=== PATIENT | male | born 1995 | race Caucasian/White ===

== ENCOUNTER 2017-05-18 22:14 | Emergency (ER) | payer SELFPAY ==
[~2017-05-18] VITALS: Ht 157.5 cm; Wt 60.0 kg
[2017-05-18 22:20] VITALS: Ht 157.5 cm; Wt 60.0 kg
[2017-05-19] MEDS ORDERED: morphine 4 MG/ML VIAL IV STA (05:16)
[2017-05-19] MEDS ORDERED: ONDANSETRON 4 MG INJ IV STA (05:16)
[2017-05-19] MEDS ORDERED: SOD CHLORIDE 0.9% 1,000 ML IV STA (05:16)
[2017-05-19] MEDS ORDERED: IOHEXOL 300MG/ML 150 ML BTL ONE (06:14)
[2017-05-19] MEDS ORDERED: SOD CHLORIDE 0.9% 100 ML ONE (06:14)
[2017-05-19 06:17] LABS: BASOPHIL # 0.1 10^3/ul (0.0-0.1); BASOPHILS % 0.8 % (0.0-2.0); EOSINOPHILS # 0.3 10^3/ul (0.0-0.5); EOSINOPHILS % 2.9 % (0.0-7.0); HEMATOCRIT 49.2 % (42.0-52.0); HEMOGLOBIN 16.3 g/dl (14.0-18.0); LYMPHOCYTES # 2.3 10^3/ul (0.8-2.9); LYMPHOCYTES % 25.4 % (18.0-55.0); MEAN CORPUSCULAR HGB CONC 33.1 g/dl (32.0-37.0); MEAN CORPUSCULAR VOLUME 90.6 fl (72.0-104.0); MEAN PLATELET VOLUME 11.1 fl (7.4-10.4); MONOCYTE # 0.7 10^3/ul (0.3-0.9); MONOCYTES % 7.7 % (0.0-13.0); NEUTROPHILS % 62.9 % (30.0-74.0); PLATELET COUNT 291 10^3/UL (140-415); RED BLOOD COUNT 5.43 10^6/ul (4.70-6.10); RED CELL DISTRIBUTION WIDTH 12.8 % (11.5-14.5)
[2017-05-19 06:30] LABS: ALBUMIN 4.9 g/dl (3.3-4.9); ALBUMIN/GLOBULIN RATIO 1.28; BILIRUBIN,INDIRECT 0.5 mg/dl (0-1.1); BILIRUBIN,TOTAL 0.5 mg/dl (0.2-1.3); CALCIUM 10.1 mg/dl (8.4-10.2); CREATININE 0.82 mg/dl (0.61-1.24); POTASSIUM 4.2 mmol/L (3.5-5.1); TOTAL PROTEIN 8.7 g/dl (6.1-8.1)
[2017-05-19 06:31] LABS: ADD UMIC NO; UR ASCORBIC ACID 20 mg/dL (NEGATIVE); UR BILIRUBIN (Dip) NEGATIVE (NEGATIVE); UR BLOOD (Dip) NEGATIVE (NEGATIVE); UR CLARITY CLEAR (CLEAR); UR COLOR YELLOW (YELLOW); UR GLUCOSE (Dip) NEGATIVE (NEGATIVE); UR KETONES (Dip) NEGATIVE (NEGATIVE); UR LEUKOCYTE ESTERASE (Dip) NEGATIVE Leu/ul (NEGATIVE); UR NITRITE (Dip) NEGATIVE (NEGATIVE); UR SPECIFIC GRAVITY (Dip) 1.024 (1.003-1.030); UR TOTAL PROTEIN (Dip) NEGATIVE (NEGATIVE); UR UROBILINOGEN (Dip) NEGATIVE (NEGATIVE)
--- NOTE | 2017-05-19 07:06 | RADRPT ---
PROCEDURE: CT Abdomen and pelvis with contrast. CLINICAL INDICATION: Abdominal pain. TECHNIQUE: CT scan of the abdomen and pelvis with contrast was performed on a multi-detector high -resolution CT scanner. The patient was scanned following the uncomplicated administration of 100 c c of Omnipaque 300 intravenous contrast. Coronal and sagittal reformatted images were obtained from the axial source images. Images were reviewed on a high-resolution PACS workstation. One or more of the following dose reduction techniques were used: - Automated exposure control. - Adjustment of the mA and/or kV according to patient size. - Use of iterative reconstruction technique. Exam CTD/vol = 4.45 mGy. Total exam DLP = 240.59 mGy-cm. COMPARISON: None. FINDINGS: Evaluation of the lung bases demonstrates no pleural or parenchymal disease. Abdomen: The liver is normal in size. There is no focal mass or dilatation of the biliary tree. T he gallbladder is not distended. The spleen, pancreas and bilateral adrenal glands are within simona l limits. Bilateral kidneys are normal in size with symmetric enhancement. There is no focal mass, hydronephrosis or hydroureter. There is no retroperitoneal adenopathy. The abdominal aorta is of normal caliber. There is no abnormal bowel wall thickening or distension. There is no bowel obstruction or free air . A normal appendix is identified. There is no diverticulosis or diverticulitis. There is no asci mazin. Pelvis: The bladder is unremarkable. The prostate and seminal vesicles are within normal limits. There is no significant pelvic adenopathy or free fluid. Evaluation of the osseous structures demonstrates no suspicious lytic or blastic lesion. IMPRESSION: No acute abnormality identified within the abdomen and pelvis. .Nicola Bashir MD, MD Date Time Electronically viewed and signed by .Nicola Bashir MD, MD on 05/19/2017 07:05 .T/
--- NOTE | 2017-05-19 07:21 | RADRPT ---
PROCEDURE: Testicle ultrasound with power Doppler. CLINICAL INDICATION: Scrotal pain. TECHNIQUE: Multiple sonographic images of the scrotal region were obtained utilizing a linear arra y transducer with grayscale and color-flow and a Doppler imaging. The images were reviewed on a high -resolution PACS workstation. COMPARISON: None. FINDINGS: Bilateral testicles are normal in size, contour, echogenicity and echotexture. The right testicle m easures 3.3 x 1.8 x 2.3 cm and the left testicle measures 3.2 x 1.7 x 2.2 cm. Testicle arterial and venous flow are normal. There is no evidence of testicular mass or torsion. There is no evidence of orchitis. Bilateral epididymi are normal in size, contour, position and echogenicity. The right epididymis me asures 7.0 x 7.1 x 3.8 mm the left epididymis measures 7.0 x 6.9 x 3.8 mm. There is no evidence of e pididymitis. There is no significant hydrocele or varicocele. Scrotal soft tissues are unremarkabl e. IMPRESSION: Unremarkable testicular ultrasound. .Nicola Bashir MD, MD Date Time Electronically viewed and signed by .Nicola Bashir MD, MD on 05/19/2017 07:21 .T/
[2017-05-19] MEDS ORDERED: ACET500C5 PO (07:52)
[2017-05-19 08:18] VITALS: BP 126/67; PULSE 72; RESP 18; TEMP 98.2
--- NOTE | 2017-05-20 21:03 | ERD ---
ER Documentation Chief Complaint Date/Time DATE: 05/20/17 TIME: 20:55 Chief Complaint PT c/o RLQ pain with vomiting and diarrhea HPI 21-year-old male present complaining of right lower quadrant abdominal pain, vomiting, diarrhea 3 days. He had one episode of vomiting and 1-2 episodes diarrhea per day. The abdominal pain is worse with movement, and affected by food intake. Patient reports chills. Denies shortness of breath. Denies blood in the stool or vomitus. The vomit is nonbilious. Denies recent travels. Denies dysuria ROS All systems reviewed and are negative except as per history of present illness. Medications Home Meds Active Scripts Acetaminophen* (Tylophen*) 500 Mg Capsule, 1 CAP PO Q6H Y for PAIN AND OR ELEVATED TEMP, #20 CAP Prov:JOLENE GÓMEZ. HEALTH PROFESSIONAL 05/19/17 Allergies Allergies: Coded Allergies: No Known Allergy (Unverified , 05/18/17) PMhx/Soc Medical and Surgical Hx: pt denies Medical Hx, pt denies Surgical Hx Hx Alcohol Use: No Hx Substance Use: No Hx Tobacco Use: No Smoking Status: Never smoker Physical Exam Vitals Vital Signs Date Time Temp Pulse Resp B/P Pulse Ox O2 Delivery O2 Flow Rate FiO2 05/19/17 08:18 98.2 72 18 126/67 100 Room Air 05/18/17 22:20 98.7 66 18 117/62 100 Physical Exam General: Well-developed, well-nourished, conscious and coherent, in no distress Skin: Warm and dry without rash, good texture and turgor Head: Normocephalic without evidence of trauma Eyes: Sclera and conjunctivae normal; pupils equal, round, and reactive to light; extraocular movements are intact Neck: Supple without meningismus or adenopathy. Carotids are equal. Trachea midline. No bruits or JVD Chest: Normal AP diameter. Good expansion without retractions. Nontender. Lungs are clear to auscultate bilaterally with good tidal volume Heart: Regular rate and rhythm. No murmur, rub, or gallops heard Abdomen: Soft, with mild RLQ tenderness, without masses, guarding, or rebound. Bowel sounds are active. No hepatosplenomegaly Back: Without spinal or CVA tenderness Extremities: Full range of motion. Good strength bilaterally. No clubbing, cyanosis, or edema. Peripheral pulses are intact. Sensation intact Neuro: Alert and oriented 4, GCS 15. Cranial nerves grossly intact. Motor and sensory exams nonfocal. Moves all extremities. Speech clear. Gait normal Result Diagram: 05/19/1730 05/19/17 0530 Results 24 hrs Laboratory Tests Test 05/19/17 05:30 White Blood Count 9.010^3/ul Red Blood Count 5.4310^6/ul Hemoglobin 16.3g/dl Hematocrit 49.2% Mean Corpuscular Volume 90.6fl Mean Corpuscular Hemoglobin 30.0pg Mean Corpuscular Hemoglobin Concent 33.1g/dl Red Cell Distribution Width 12.8% Platelet Count 67984^3/UL Mean Platelet Volume 11.1fl Neutrophils % 62.9% Lymphocytes % 25.4% Monocytes % 7.7% Eosinophils % 2.9% Basophils % 0.8% Nucleated Red Blood Cells % 0.0/100WBC Neutrophils # (Manual) 5.710^3/ul Lymphocytes # 2.310^3/ul Monocytes # 0.710^3/ul Eosinophils # 0.310^3/ul Basophils # 0.110^3/ul Nucleated Red Blood Cells # 0.010^3/ul Urine Color YELLOW Urine Clarity CLEAR Urine pH 5.0 Urine Specific [place] 1.024 Urine Ketones NEGATIVEmg/dL Urine Nitrite NEGATIVEmg/dL Urine Bilirubin NEGATIVEmg/dL Urine Urobilinogen NEGATIVEmg/dL Urine Leukocyte Esterase NEGATIVELeu/ul Urine Hemoglobin NEGATIVEmg/dL Urine Glucose NEGATIVEmg/dL Urine Total Protein NEGATIVEmg/dl Sodium Level 142mmol/L Potassium Level 4.2mmol/L Chloride Level 102mmol/L Carbon Dioxide Level 28mmol/L Anion Gap 16 Blood Urea Nitrogen 15mg/dl Creatinine 0.82mg/dl Glucose Level 90mg/dl Calcium Level 10.1mg/dl Total Bilirubin 0.5mg/dl Direct Bilirubin 0.00mg/dl Indirect Bilirubin 0.5mg/dl Aspartate Amino Transf (AST/SGOT) 21IU/L Alanine Aminotransferase (ALT/SGPT) 29IU/L Alkaline Phosphatase 89IU/L Total Protein 8.7g/dl Albumin 4.9g/dl Globulin 3.80g/dl Albumin/Globulin Ratio 1.28 Lipase 71U/L Current Medications Medications (Trade) Dose Ordered Sig/Mihaela Route PRN Reason Start Time Stop Time Status Last Admin Dose Admin Sodium Chloride (NS) 1,000 ml @ 1,000 mls/hr Q1H STAT IV 05/19/17 05:16 05/19/17 06:15 DC 05/19/17 05:41 Morphine Sulfate (morphine) 4 mg ONCE STAT IV 05/19/17 05:16 05/19/17 05:18 DC 05/19/17 05:40 Ondansetron HCl 4 mg 4 mg ONCE STAT IV 05/19/17 05:16 05/19/17 05:18 DC 05/19/17 05:40 Sodium Chloride (NS) 100 ml @ ud STK-MED ONCE .ROUTE 05/19/17 06:14 05/19/17 06:15 DC 05/19/17 06:57 Iohexol (Omnipaque 300mg/ ml) 150 ml STK-MED ONCE .ROUTE 05/19/17 06:14 05/19/17 06:15 DC 05/19/17 06:56 PROCEDURE: CT Abdomen and pelvis with contrast. CLINICAL INDICATION: Abdominal pain. TECHNIQUE: CT scan of the abdomen and pelvis with contrast was performed on a multi-detector high-resolution CT scanner. The patient was scanned following the uncomplicated administration of 100 cc of Omnipaque 300 intravenous contrast. Coronal and sagittal reformatted images were obtained from the axial source images. Images were reviewed on a high-resolution PACS workstation. One or more of the following dose reduction techniques were used: - Automated exposure control. - Adjustment of the mA and/or kV according to patient size. - Use of iterative reconstruction technique. Exam CTD/vol = 4.45 mGy. Total exam DLP = 240.59 mGy-cm. COMPARISON: None. FINDINGS: Evaluation of the lung bases demonstrates no pleural or parenchymal disease. Abdomen: The liver is normal in size. There is no focal mass or dilatation of the biliary tree. The gallbladder is not distended. The spleen, pancreas and bilateral adrenal glands are within normal limits. Bilateral kidneys are normal in size with symmetric enhancement. There is no focal mass, hydronephrosis or hydroureter. There is no retroperitoneal adenopathy. The abdominal aorta is of normal caliber. There is no abnormal bowel wall thickening or distension. There is no bowel obstruction or free air. A normal appendix is identified. There is no diverticulosis or diverticulitis. There is no ascites. Pelvis: The bladder is unremarkable. The prostate and seminal vesicles are within normal limits. There is no significant pelvic adenopathy or free fluid. Evaluation of the osseous structures demonstrates no suspicious lytic or blastic lesion. IMPRESSION: No acute abnormality identified within the abdomen and pelvis. .Nicola Bashir MD, MD Date Time Electronically viewed and signed by .Nicola Bashir MD, MD on 05/19/2017 07:05 .T/ CC: MARISA HOGUE PA-C PROCEDURE: Testicle ultrasound with power Doppler. CLINICAL INDICATION: Scrotal pain. TECHNIQUE: Multiple sonographic images of the scrotal region were obtained utilizing a linear array transducer with grayscale and color-flow and a Doppler imaging. The images were reviewed on a high-resolution PACS workstation. COMPARISON: None. FINDINGS: Bilateral testicles are normal in size, contour, echogenicity and echotexture. The right testicle measures 3.3 x 1.8 x 2.3 cm and the left testicle measures 3.2 x 1.7 x 2.2 cm. Testicle arterial and venous flow are normal. There is no evidence of testicular mass or torsion. There is no evidence of orchitis. Bilateral epididymi are normal in size, contour, position and echogenicity. The right epididymis measures 7.0 x 7.1 x 3.8 mm the left epididymis measures 7.0 x 6.9 x 3.8 mm. There is no evidence of epididymitis. There is no significant hydrocele or varicocele. Scrotal soft tissues are unremarkable. IMPRESSION: Unremarkable testicular ultrasound. .Nicola Bashir MD, MD Date Time Electronically viewed and signed by .Nicola Bashir MD, MD on 05/19/2017 07:21 .T/ CC: JOLENE GÓMEZ. HEALTH PROFESSIONAL Procedures/MDM Well-appearing 21-year-old male present ED with diffuse right lower quadrant abdominal pain, vomiting, diarrhea 3 days. CBC, CMP, lipase, and UA are all unremarkable. CT abdomen and pelvis with IV contrast, ordered by previous PA, was negative. Scrotal ultrasound also obtained to rule out testicular torsion, also negative. Likely, patient has a viral gastroenteritis. Patient is advised to increase fluid intake, and eat a bland diet for next several days. Patient appears well, stable for discharge and outpatient management. Medical decision making shared with patient and family. Education provided to patient and family. Patient and family expressed understanding of the plan. Medications on discharge: Tylenol. Follow-up: Primary care provider in 2-3 days or return to ED if worse. Disclaimer: Inadvertent spelling and grammatical errors are likely due to EHR/ dictation software use and do not reflect on the overall quality of patient care. Also, please note that the electronic time recorded on this note does not necessarily reflect the actual time of the patient encounter. Departure Diagnosis: Primary Impression: Abdominal pain Condition: Stable Patient Instructions: Abdominal Pain, Self-Care for Vomiting and Diarrhea [facility] Usted se cates hecho un examen mdico de control que le indica que no est en ignacio condicin que requiera tratamiento urgente en el Departamento de Emergencia. Un estudio ms profundo y el tratamiento de dee condicin pueden esperar sin ningn riesgo hasta que usted sea atendida/o en el consultorio de dee mdico o ignacio cl adam. Es responsabilidad suya arreglar ignacio marija para el seguimiento del william. MANEJO DE CONDICIONES NO URGENTES EN EL FUTURO 1) Si usted tiene un mdico de atencin primaria: Usted debera llamar a dee mdico de atencin primaria antes de venir al departamento de emergencia. Despus de las horas de consultorio, dee doctor o dee asociado/a est disponible por telfono. El mdico o enfermero de ken en el servicio telefnico puede asesorarle por tigre medio para atender el problema, o william contrario se puede programar ignacio marija. 2) Si usted no tiene un mdico de atencin primaria: Llame al mdico o clnica de referencia que aparece abajo gil las horas de consultorio para hacer ignacio marija para que le vean. CLINICAS: [facility] [phone] [address] [facility] [phone] [address] [facility] [phone] [address] [place] [phone] [place] [phone] [id number] [facility]. [phone] [address] Additional Instructions: Regrese a estas instalaciones dentro de [facility] [place] para un examen de seguimiento.Regrese antes si dee condicin se empeora. JOLENE GÓMEZ NP May 20, 2017 21:03
== END 2017-05-19 08:19 | disposition home or self-care (01) ==
LOC: FTE 22:14
DX: R10.31 Right lower quadrant pain (principal); R11.10 Vomiting, unspecified
CPT/HCPCS: 36415; 74177; 76870; 80053; 81003; 83690; 85025; 96374; 96375; 99285; J2270; J2405; J7030; Q9967